=== PATIENT | female | born 1980 | race Caucasian/White ===

== ENCOUNTER 2022-07-31 16:28 | Emergency (ER) | payer OTHER, SELFPAY ==
[2022-07-31 16:38] VITALS: BP 197/136; PULSE 103; RESP 18; TEMP 36.6; O2SAT 98; BMI 64.5
[2022-07-31 17:40] LABS: Basophils # 0.1 10^3/uL (0.0-0.1); Basophils % 0.8 %; Eosinophils # 0.2 10^3/uL (0.0-0.8); Hematocrit 43.8 % (37.0-47.0); Hemoglobin 14.4 g/dL (11.5-15.3); Lymphocytes # 3.6 10^3/uL (0.8-4.8); Lymphocytes % 29.5 %; Mean Corpuscular HGB Conc 32.9 g/dL (30.0-36.0); Mean Corpuscular Hemoglobin 28.1 pg (28.0-34.0); Mean Corpuscular Volume 85.4 fl (81-99); Mean Platelet Volume 9.4 fL (7.4-10.4); Monocytes # 0.8 10^3/uL (0.2-0.9); Monocytes % 6.8 %; Neutrophils # 7.27 10^3/uL (1.8-7.7); Neutrophils % 59.6 %; Nucleated Red Blood Cells % 0 %; Platelet Count 434 10^3/cmm (130-400); Red Blood Count 5.13 10^6/uL (4.1-5.3); Red Cell Distribution Width 13.3 % (12.1-15.1); White Blood Count 12.2 10^3/uL (4.0-10.0)
[2022-07-31 18:55] LABS: Alanine Aminotransferase 28 U/L (0-33); Alkaline Phosphatase 108 U/L (35-105); Anion Gap 14.9 (5-19); Aspartate Amino Transferase 16 U/L (0-32); Blood Urea Nitrogen 7 mg/dL (6-20); Calcium 9.7 mg/dL (8.5-10.5); Carbon Dioxide 26 mmol/L (22-29); Chloride 103 mmol/L (98-107); Globulin 3.2 g/dL (1.3-4.6); Glomerular Filtration Rate 136.6 mL/min (90-130); Glucose 137 mg/dL (65-115); Lipase 22 U/L (13-60); Osmolality Calculated 290 mOsm/kg (285-295); Potassium 3.9 mmol/L (3.5-5.1); Sodium 140 mmol/L (136-145); Total Bilirubin 0.2 mg/dL (0.15-1.2); Total Protein 7.2 g/dL (6.6-8.7)
--- NOTE | 2022-07-31 18:55 | W.ED.ABDPA2 ---
HPI - Abdominal Pain General: Chief Complaint: Abdominal Pain Stated Complaint: Lower abd pain Time Seen by Provider: 07/31/22 18:55 History of Present Illness: Ms. Bravo is a 42-year-old lady who presents to the emergency department due to lower abdominal pain. She reports history of PCOS and starting approximately 3 days ago had what she describes as a sensation of popping cysts on her ovaries. Typically this is a severe deep muscular tearing pain that lasts approximately 5 minutes. She had recurrence on the right side twice and then has had multiple times on the left. This is very typical of previous episodes of PCOS with cyst rupture. Does associated generalized symptoms. Has had light vaginal spotting though no other pain or discharge, this is atypical of previous periods. Intensity symptoms moderate. Course has persisted. No other specific changes in health, exacerbating, or alleviating factors identified. Onset (ago): day(s) Location: RLQ, LLQ and Pelvis Severity: moderate Exacerbating factors: nothing Relieving factors: nothing Related Data: Date of Last Menstrual Period: 07/29/22 Review of Systems General: Reports: 10 or more systems reviewed and unremarkable except in HPI and below PFSH ED PFSH: Medical History (Updated 08/08/22 @ 00:01 by ) History of necrotizing fasciitis Morbid obesity PCOS (polycystic ovarian syndrome) Surgical History (Updated 07/31/22 @ 19:28 by Fish Moreno MD) History of cholecystectomy Social History (Updated 07/31/22 @ 19:28 by Fish Moreno MD) Smoking and tobacco status: current every day smoker Alcohol intake: current Alcohol use comment: occassional Female Reproductive History: Date of last menstrual period: 07/29/22 Physical Exam Const: COMMON NORMALS: alert GENERAL APPEARANCE: cooperative and well developed HENMT: COMMON NORMALS: normocephalic and atraumatic HEAD & SCALP: normocephalic and atraumatic Eye: COMMON NORMALS: conjunctivae normal CONJUNCTIVA: Yes conjunctivae normal SCLERA: sclerae normal Neck/C-Spine: COMMON NORMALS: supple GENERAL: Yes trachea midline Resp: COMMON NORMALS: clear to auscultation bilaterally EFFORT & INSPECTION: Yes able to speak in complete sentences AUSCULTATION: clear to auscultation bilaterally Cardio: COMMON NORMALS: regular rate and regular rhythm RATE: regular rate RHYTHM: regular rhythm GI: COMMON NORMALS: Soft to palpation PALPATION: Yes Soft to palpation, Yes Tenderness to palpation present (GI) Details: LLQ and RLQ, No Guarding due to palpation present (GI) and No Rigid due to palpation PERCUSSION: normal to percussion : OTHER: Pelvic exam performed with limitation secondary to body habitus. Medical Microbiologist present. No significant external lesions identified for source of bleeding. No blood at vaginal introitus. Scant dark red blood in the vaginal vault. Unable to visualize cervix properly, no pooling of dark blood, or obvious other discharge. Left adnexal tenderness on bimanual exam. Extremity: GENERAL: Yes normal exam except as noted and No edema Neuro: COMMON NORMALS: moves all extremities SENSORIUM/ORIENTATION: Yes alert and No Orientation impaired Psych: COMMON NORMALS: mental status grossly normal and Normal thought process present THOUGHT PROCESS: Normal thought process present Course ED course: - Patient was seen and evaluated by me at bedside - Patient placed on cardiac monitors, IV access obtained - Initial evaluation notable for exam as above - Labs and xrays personally interpreted by me -Analgesia given - Labs notable for mild leukocytosis, normal hemoglobin. No significant metabolic derangement. Hematuria without evidence of urinary tract infection. Negative hCG. Wet prep positive for clue cells - Imaging notable for no acute pathology identified on ultrasound imaging. I discussed possibility of additional imaging with the patient including risks of completing now versus watchful waiting. Patient comfortable foregoing CT imaging at this time based on my counseling and likely explanation of bacterial vaginosis. - Upon serial reexamination after treatment the patient was improved with analgesia - Based on patient history, evaluation, and testing as interpreted the most likely cause of the patient's condition is abdominal pain likely secondary to bacterial vaginosis - The results of ED evaluation were discussed with the patient including prescriptions and/or symptomatic cares (if applicable) including appropriate and responsible use, followup plan, and return precautions. The patient verbalized understanding and felt safe for discharge. - Patient discharged in satisfactory condition. Note: Click bubbles or prepopulated orozco in note writing are used for assistance with data collection and billing and are inherently more limited than narrative and other text portions of this note. Please use narrative for additional clinical history and defer to narrative/free test for any case of contradictory information. If information appears in only free text or click bubble it should be considered present or absent as reported. Please contact note writer technical publications for clarifications of clinical information or contradictory information. MDM is a brief summary, contradictory or erroneous seeming information should be clarified and full note should be reviewed. Vital Signs: Vital signs: Vital Signs Temperature 97.8 F 07/31/22 16:38 Pulse Rate 84 07/31/22 23:28 Respiratory Rate 18 07/31/22 23:28 Blood Pressure 187/98 07/31/22 23:28 Pulse Oximetry 95 07/31/22 23:28 Oxygen Delivery Me thod 07/31/22 21:48 MDM - Abdominal Pain Medical Decision Making 42-year-old lady presenting with pelvic and lower abdominal pain. Patient is nontoxic in appearance. Ultrasound negative for acute reproductive pathology. Patient found to have bacterial vaginosis. Satisfactory for outpatient management with strict return precautions given. Medical Records I reviewed the patient's medical records. Lab Data I reviewed the patient's lab results. : 07/31/22 17:28 07/31/22 17:28 Labs/Radiology: Radiology Impressions Pelvic/Transvag US 07/31/22 20:05 IMPRESSION: No acute findings. Laboratory Results WBC 12.2 10^3/uL (4.0-10.0) H 07/31/22 17:28 RBC 5.13 10^6/uL (4.1-5.3) 07/31/22 17:28 Hgb 14.4 g/dL (11.5-15.3) 07/31/22 17:28 Hct 43.8 % (37.0-47.0) 07/31/22 17:28 MCV 85.4 fl (81-99) 07/31/22 17:28 MCH 28.1 pg (28.0-34.0) 07/31/22 17:28 MCHC 32.9 g/dL (30.0-36.0) 07/31/22 17: RDW 13.3 % (12.1-15.1) 07/31/22 17:28 Plt Count 434 10^3/cmm (130-400) H 07/31/22 17:28 MPV 9.4 fL (7.4-10.4) 07/31/22 17:28 Neut % (Auto) 59.6 % 07/31/22 17:28 Lymph % (Auto) 29.5 % 07/31/22 17:28 [place] % (Auto) 6.8 % 07/31/22 17:28 Eos % (Auto) 2.0 % 07/31/22 17:28 Baso % (Auto) 0.8 % 07/31/22 17: Neut # (Auto) 7.27 10^3/uL (1.8-7.7) 07/31/22 17:28 Lymph # (Auto) 3.6 10^3/uL (0.8-4.8) 07/31/22 17:28 [place] # (Auto) 0.8 10^3/uL (0.2-0.9) 07/31/22 17:28 Eos # (Auto) 0.2 10^3/uL (0.0-0.8) 07/31/22 17: Baso # (Auto) 0.1 10^3/uL (0.0-0.1) 07/31/22 17: Nucleated RBC % (auto) 0 % 07/31/22 17: Nucleated RBCs # 0.0 /100WBC 07/31/22 17:28 Sodium 140 mmol/L (136-145) 07/31/22 17:28 Potassium 3.9 mmol/L (3.5-5.1) 07/31/22 17:28 Chloride 103 mmol/L (98-107) 07/31/22 17:28 Carbon Dioxide 26 mmol/L (22-29) 07/31/22 17:28 Anion Gap 14.9 (5-19) 07/31/22 17:28 BUN 7 mg/dL (6-20) 07/31/22 17:28 Creatinine 0.5 mg/dL (0.5-0.9) 07/31/22 17:28 GFR Calculation 136.6 mL/min (90-130) H 07/31/22 17:28 Glucose 137 mg/dL (65-115) H 07/31/22 17:28 Calculated Osmolality 290 mOsm/kg (285-295) 07/31/22 17:28 Calcium 9.7 mg/dL (8.5-10.5) 07/31/22 17:28 Total Bilirubin 0.2 mg/dL (0.15-1.2) 07/31/22 17:28 AST 16 U/L (0-32) 07/31/22 17:28 ALT 28 U/L (0-33) 07/31/22 17: Alkaline Phosphatase 108 U/L (35-105) H 07/31/22 17:28 Total Protein 7.2 g/dL (6.6-8.7) 07/31/22 17: Albumin 4.0 g/dL (3.5-5.2) 07/31/22 17: Globulin 3.2 g/dL (1.3-4.6) 07/31/22 17: Lipase 22 U/L (13-60) 07/31/22 17:28 HCG, Qual Negative (Negative) 07/31/22 18:30 Urine Color Yellow (Yellow) 07/31/22 18:30 Urine Appearance Clear (CLEAR) 07/31/22 18:30 Urine pH 6 (5-7) 07/31/22 18:30 Ur Specific [place] 1.010 (1.005-1.030) 07/31/22 18:30 Urine Protein Neg (Negative) 07/31/22 18:30 Urine Glucose (UA) Norm (Normal) 07/31/22 18:30 Urine Ketones Negative (Negative) 07/31/22 18:30 Urine Blood 3+ (Negative) H 07/31/22 18:30 Urine Nitrate Negative (Negative) 07/31/22 18:30 Urine Bilirubin Neg (Negative) 07/31/22 18:30 Urine Urobilinogen Norm mg/dL (Negative) 07/31/22 18:30 Ur Leukocyte Esterase Negative (Negative) 07/31/22 18:30 Urine RBC 10-15 /hpf (0-2) H 07/31/22 18:30 Urine WBC 0-4 /hpf (0-5) H 07/31/22 18:30 Ur Squamous Epith Cells 0-4 /hpf (0-5) H 07/31/22 18:30 Amorphous Sediment Not Reportable 07/31/22 18:30 Urine Bacteria Trace /hpf (NONE) 07/31/22 18:30 Discharge Plan Discharge Patient Disposition: Home Clinical Impression: Abdominal pain, Muscle spasm, Bacterial vaginosis Condition: Stable Prescriptions: New metronidazole 500 mg tablet 500 mg PO BID 10 Days Qty: 20 0RF ondansetron 4 mg tablet,disintegrating 4 mg PO Q8H PRN (Reason: nausea and vomiting) Qty: 15 0RF oxycodone 5 mg tablet 5 mg PO Q4H PRN (Reason: pain) Qty: 10 0RF Discharge Orders: Discharge ED (Routine); Ordered 07/31/22 Ordered By: Fish Moreno Referrals: Deidre Tariq, TC OPERATOR [Primary Care Provider] - Discharge Diet: Usual diet Discharge Activity: Increase activity as tolerated Patient Instructions: Bacterial Vaginosis (ED), Abdominal Pain (ED), Muscle Spasm (ED), Opioid Safety, Pain Management Activity Restrictions/Additional Instructions: Thank you for visiting the emergency department. You were seen and evaluated for abdominal pain with muscle wall spasms. The exact cause of the symptoms is unclear. You were found to have bacterial vaginosis which will be treated. Additionally I will prescribe oxycodone and an antiemetic. You may use [id number] medications for symptoms as well as heat and ice however please do not exceed the daily recommended dosage and please keep in mind that many namebrand medications contain the same active ingredients. Please follow-up with your primary care provider. Return to the emergency department for worsening symptoms or anything else that you are concerned about and feel needs emergency department evaluation. Coding Level of Care Code ED Finance Lead for Murali Fwstephanie Exam Comprehensive
[2022-07-31 19:29] LABS: HCG Qualitative Urine. Negative (Negative)
[2022-07-31 19:36] VITALS: RESP 20
[2022-07-31] MEDS: morphine 4 mg/mL SDV 1 mL IVP ×2 (19:36→23:15)
[2022-07-31 19:41] LABS: Add Urine Culture? No; Add Urine Microscopic? YES; Bacteria Urine TRACE /hpf; Bilirubin Urine Neg (Negative); Blood Urine 3+ (Negative); Glucose Urine UA Norm (Normal); Ketones Urine Negative (Negative); Leukocyte Esterase Urine Negative (Negative); Nitrate Urine Negative (Negative); Protein Urine Neg (Negative); Squamous Epithelial Cell Urine 0-4 /hpf (0-5); Urine Appearance Clear (CLEAR); Urine Color Yellow (Yellow); Urobilinogen Urine Norm (Negative); WBC Urine 0-4 /hpf (0-5); pH Urine 6 (5-7)
--- NOTE | 2022-07-31 20:05 | USR_ITS ---
PROCEDURE INFORMATION: Exam: US Nonobstetric Pelvis; Complete Exam date and time: 07/31/2022 8:35 PM Age: 42 years old Clinical indication: Pelvic pain; Patient HX: Morbidly obese, nulligravida with long history of irregular menses since onset of puberty. She has a medical record of pcos, but i see no evidence of pcos on this exam. ; Additional info: Llq pain/adnexal tenderness, ? ruptured cyst vs other TECHNIQUE: Imaging protocol: Transabdominal pelvic nonobstetric ultrasound. Complete exam. Real time ultrasound with image documentation. COMPARISON: No relevant prior studies available. FINDINGS: Uterus: Uterus is normal. Endometrial stripe is normal. Right ovary/adnexa: Ovary is normal. No mass. Normal blood flow. Left ovary/adnexa: Ovary is normal. No mass. Normal blood flow. Intraperitoneal space: No intraperitoneal fluid. Urinary bladder: Normal. US/US pelvic with transvaginal IMPRESSION: No acute findings.
--- NOTE | 2022-07-31 20:40 | PC.NURSE ---
Pelvic exam performed by Dr Moreno. Wet prep obtained. Patient tolerated well.
[2022-07-31 21:48] VITALS: BP 144/90; PULSE 89; RESP 16; O2SAT 95
[2022-07-31 22:00] VITALS: PULSE 89; RESP 18; O2SAT 95
[2022-07-31] MEDS: dicyclomine 10 mg Capsule PO (23:14)
[2022-07-31] MEDS: metroNIDAZOLE 500 MG Tablet PO (23:14)
[2022-07-31 23:15] VITALS: RESP 16
[2022-07-31 23:28] VITALS: BP 187/98; PULSE 84; RESP 18; O2SAT 95
== END 2022-07-31 23:30 | disposition home or self-care (01) ==
PROVIDERS: Family Medicine; Emergency Provider Emergency Medicine; PCP Nurse Practitioner Family
DX: N76.0 Acute vaginitis (principal); R10.30 Lower abdominal pain, unspecified; M62.838 Other muscle spasm
CPT/HCPCS: 76830; 76856; 80053; 81001; 81025; 83690; 85025; 87210; 96374; 96376; 99285; J2270